=== PATIENT | female | born 1970 | race Caucasian/White ===

== ENCOUNTER 2017-01-05 20:25 | Emergency (ER) | payer SELFPAY ==
[~2017-01-05] VITALS: Ht 170.2 cm; Wt 69.4 kg
[2017-01-05 20:30] VITALS: BP 171/102
== END 2017-01-05 22:10 | disposition home or self-care (01) ==
LOC: ED 22:04
DX: Z00.8 Encounter for other general examination (principal)
CPT/HCPCS: 81003

== ENCOUNTER 2017-06-08 11:36 | Emergency (ER) | payer OTHER ==
[~2017-06-08] VITALS: Ht 170.2 cm; Wt 65.7 kg
[~2017-06-08 11:36] MED LIST: LISI40TA PO
[2017-06-08] MEDS ORDERED: ALPR1TAB2 PO (11:44)
[2017-06-08] MEDS ORDERED: MORPHINE SULFATE 4 MG/ML, 1ML ONE (12:26)
[2017-06-08] MEDS ORDERED: ONDANSETRON 2MG/ML, 2ML ONE (12:26)
[2017-06-08] MEDS ORDERED: MORPHINE SULFATE 4 MG/ML, 1ML IVPush PRN (12:30)
[2017-06-08] MEDS ORDERED: ONDANSETRON 2MG/ML, 2ML IVPush ONE (12:30)
[2017-06-08 12:31] LABS: HEMATOCRIT 40.9 % (34.6-47.8); HEMOGLOBIN 13.6 g/dL (11.7-16.4); WHITE BLOOD COUNT 5.9 x10^3/uL (3.4-10)
[2017-06-08 12:44] LABS: BLOOD UREA NITROGEN 22 mg/dL (7-18)
[2017-06-08] MEDS ORDERED: SODIUM CHLORIDE 0.9% 1,000ML IV ONE (13:00)
[2017-06-08] MEDS ORDERED: SODIUM CHLORIDE FLUSH 10ML SYR IVF ONE (13:30)
[2017-06-08 13:32] VITALS: BP 150/77
== END 2017-06-08 13:32 | disposition home or self-care (01) ==
LOC: ED 12:43
DX: S39.012A Strain of muscle, fascia and tendon of lower back, initial encounter (principal); F17.210 Nicotine dependence, cigarettes, uncomplicated; I10 Essential (primary) hypertension; X58.XXXA Exposure to other specified factors, initial encounter; Y93.89 Activity, other specified; Y92.89 Other specified places as the place of occurrence of the external cause; Y99.8 Other external cause status
CPT/HCPCS: 36415; 80048; 81003; 82040; 84703; 85025; 96361; 96374; 96375; 99284; J2405; J7030